=== PATIENT | male | born 2000 | race Hispanic/Latino ===

== ENCOUNTER 2018-04-12 08:59 | Emergency (ER) | payer OTHER ==
[~2018-04-12] VITALS: Ht 190.5 cm; Wt 122.7 kg
[~2018-04-12 08:59] MED LIST: ANTIPYRINE/BENZ1 SOL AS; MOTRIN400 MG PO; NO HOME MEDS; [UNRECOGNIZED DRUG - REMARK]
[2018-04-12] MEDS ORDERED: OFLOXACIN0.3 % OD (09:35)
[2018-04-12] MEDS ORDERED: CRIXIVAN400 MG PO (09:36)
[2018-04-12] MEDS ORDERED: COMBIVIR 1501 COMBO PO (09:36)
[2018-04-12 10:25] LABS: IMMATURE GRANULOCYTES 0.8 % (0.0-5.0); MEAN CORPUSCULAR HGB 26.7 pG CALC (26.0-32.0); MEAN CORPUSCULAR HGB CONC 33.1 g/L CALC (32.0-36.0); NEUT# 6.78 thou/uL (1.82-7.42); RED BLOOD COUNT 6.3 mill/uL (4.70-6.10); RED CELL DISTRI WIDTH 13.5 % (11.5-15.5)
[2018-04-12 10:27] LABS: ALBUMIN 5.5 g/dL (3.2-5.0); ALKALINE PHOSPHATASE 81 u/l (38-126); ANION GAP 18 (6-22 (CALC)); BILIRUBIN, TOTAL 0.4 mg/dL (0.0-1.4); BUN 12 mg/dL (8-21); BUN/CREATININE RATIO 15 (12-20 (CALC)); CARBON DIOXIDE 26 mmol/l (22-30); CHLORIDE 102 mmol/l (95-108); CREATININE 0.8 mg/dL (0.7-1.3); GFR > 60 ML/MIN (>=60 (CALC)); GFR FOR AFR.AMER. > 60 ML/MIN (>=60 (CALC)); POTASSIUM 3.8 mmol/l (3.5-5.1); SGOT/AST 24 u/l (17-59); SODIUM 142 mmol/l (137-146); TOTAL PROTEIN 9.1 g/dL (6.3-8.2)
[2018-04-12 10:34] LABS: HEMATOCRIT 50.8 % (39.0-50.0); HEMOGLOBIN 16.8 g/dl (14.0-18.0); MEAN CELL VOLUME 80.6 fL CALC (80.0-100.0)
[2018-04-12 10:49] VITALS: BP 153/86
[2018-04-12 11:15] LABS: URINE BILIRUBIN - DIPSTICK NEGATIVE (NEGATIVE); URINE BLOOD DIPSTICK NEGATIVE (NEGATIVE); URINE COLOR YELLOW; URINE GLUCOSE - DIPSTICK NEGATIVE (NEGATIVE); URINE KETONE NEGATIVE (NEGATIVE); URINE LEUK ESTERASE NEGATIVE (NEGATIVE); URINE NITRITE - DIPSTICK NEGATIVE (Negative); URINE PH 6.5 (4.5-8.0); URINE PROTEIN - DIPSTICK NEGATIVE (NEG-TRACE); URINE UROBILINOGEN - DIPSTICK 0.2 E.U./dL (0.2)
== END 2018-04-12 10:58 | disposition home or self-care (01) | DRG 951 ==
LOC: ED 08:59
PROVIDERS: Family Medicine
DX: Z77.21 Contact with and (suspected) exposure to potentially hazardous body fluids (principal); Y92.89 Other specified places as the place of occurrence of the external cause

== ENCOUNTER 2021-04-25 10:53 | Emergency (ER) | payer OTHER, BC ==
[~2021-04-25] VITALS: Ht 190.5 cm; Wt 128.0 kg
[~2021-04-25 10:53] MED LIST changes: +COMBIVIR 1501 COMBO PO; +CRIXIVAN400 MG PO; +OFLOXACIN0.3 % OD
[2021-04-25 11:00] VITALS: BP 152/76
[2021-04-25] MEDS ORDERED: ULTRAM50 MG PO (13:52)
[2021-04-25] MEDS ORDERED: FLEXERIL5 M1 PO (13:53)
== END 2021-04-25 14:15 | disposition home or self-care (01) | DRG 563 ==
LOC: ED 10:53
DX: S29.012A Strain of muscle and tendon of back wall of thorax, initial encounter (principal); X50.0XXA Overexertion from strenuous movement or load, initial encounter; Y93.F2 Activity, caregiving, lifting; Y92.89 Other specified places as the place of occurrence of the external cause; Y99.0 Civilian activity done for income or pay

== ENCOUNTER 2024-06-04 10:01 | Emergency (ER) | payer OTHER ==
[2024-06-04] VITALS (13 sets, daily range): BP systolic 104–143; BP diastolic 57–118
[~2024-06-04] VITALS: Ht 190.5 cm; Wt 134.0 kg
[~2024-06-04 10:01] MED LIST changes: +FLEXERIL5 M1 PO; +ULTRAM50 MG PO
[2024-06-04] MEDS ORDERED: KETOROLAC TROMETHAMINE 15 MG/ML SDV IV ONE (10:20)
[2024-06-04 11:35] LABS: BASO% 0.7 % (0-3); EOS% 3.4 % (0-8); IMMATURE GRANULOCYTES 0.5 % (0.0-5.0); LYMPH% 37.9 % (15-41); MEAN CELL VOLUME 80.2 fL CALC (80.0-100.0); MEAN CORPUSCULAR HGB 27.4 pG CALC (26.0-32.0); MEAN CORPUSCULAR HGB CONC 34.1 g/dL CAL (32.0-36.0); MONO% 6.3 % (2-13); NEUT# 3.79 thou/uL (1.82-7.42); NEUT% 51.2 % (42-76); RED BLOOD COUNT 5.41 mill/uL (4.70-6.10)
[2024-06-04 11:37] LABS: HEMATOCRIT 43.4 % (39.0-50.0); HEMOGLOBIN 14.8 g/dl (14.0-18.0)
[2024-06-04 11:42] LABS: ALBUMIN 4.9 g/dL (3.2-5.0); ALKALINE PHOSPHATASE 55 u/l (38-126); ANION GAP 12 (6-22 (CALC)); BILIRUBIN, TOTAL 0.5 mg/dL (0.2-1.3); BUN 13 mg/dL (9-20); BUN/CREATININE RATIO 17 (12-20 (CALC)); CARBON DIOXIDE 28 mmol/l (22-30); CHLORIDE 104 mmol/l (95-108); CREATININE 0.8 mg/dL (0.7-1.3); ESTIMATED GFR 125 ML/MIN (>=90 (CALC)); SGOT/AST 40 u/l (17-59); SODIUM 140 mmol/l (137-146); TOTAL PROTEIN 8.1 g/dL (6.3-8.2)
[2024-06-04] MEDS ORDERED: EC-NAPROXEN500 MG PO (13:21)
[2024-06-04] MEDS ORDERED: FLEXERIL5 M1 PO (13:21)
== END 2024-06-04 13:46 | disposition home or self-care (01) | DRG 552 ==
LOC: ED 10:01
PROVIDERS: Family Medicine
DX: M54.6 Pain in thoracic spine (principal)
CPT/HCPCS: J1885; Q9967